=== PATIENT | female | born 1995 | race Hispanic/Latino ===

== ENCOUNTER 2023-08-08 14:00 | Day surgery (SDC) | payer OTHER ==
[2023-08-08 14:26] VITALS: BMI 24.5
[2023-08-08] MEDS ORDERED: hydrALAZINE 20 MG/ML VIAL SLOW IVP PRN (15:02)
== END 2023-08-08 15:10 | disposition home or self-care (01) ==
LOC: CSHLD/OP 14:00 → CSHLD 14:00 → UNDOADMIN 14:00 → UNDODISIN 15:10 → CSHLD/OP 15:10 → EDSTATUS 08-09 11:17
PROVIDERS: ATTEND Obstetrics & Gynecology
DX: O46.92 Antepartum hemorrhage, unspecified, second trimester (principal); Z98.890 Other specified postprocedural states; Z79.899 Other long term (current) drug therapy; Z3A.27 27 weeks gestation of pregnancy
CPT/HCPCS: 36415; 76815; 81001; 84702; 85025; 86900; 86901; 87086; 99282

== ENCOUNTER 2023-10-29 11:51 | Day surgery (SDC) | payer OTHER ==
[2023-10-29 12:37] VITALS: BMI 31.2
== END 2023-10-29 13:10 | disposition home or self-care (01) ==
LOC: CSHLD/OP 11:51
PROVIDERS: ATTEND Family Medicine
DX: O47.1 False labor at or after 37 completed weeks of gestation (principal); Z79.899 Other long term (current) drug therapy; Z3A.39 39 weeks gestation of pregnancy
CPT/HCPCS: 99282

== ENCOUNTER 2023-11-03 | Inpatient (IN) | payer OTHER | END 2023-11-07 12:35 | disposition home or self-care (01) | DRG 787 | PROVIDERS: ADMIT Family Medicine | PROC: 3E0P7VZ Introduction of Hormone into Female Reproductive, Via Natural or Artificial Opening (ICD-10-PCS; 2023-11-04) | PROC: 3E033XZ Introduction of Vasopressor into Peripheral Vein, Percutaneous Approach (ICD-10-PCS; 2023-11-04) | PROC: 10D00Z1 Extraction of Products of Conception, Low, Open Approach (ICD-10-PCS; principal; 2023-11-05) | PROC: 0W3R7ZZ Control Bleeding in Genitourinary Tract, Via Natural or Artificial Opening (ICD-10-PCS; 2023-11-05) | PROC: 30233N1 Transfusion of Nonautologous Red Blood Cells into Peripheral Vein, Percutaneous Approach (ICD-10-PCS; 2023-11-05) | DX: O14.94 Unspecified pre-eclampsia, complicating childbirth (principal); D62 Acute posthemorrhagic anemia; Z3A.40 40 weeks gestation of pregnancy; Z37.0 Single live birth; O48.0 Post-term pregnancy; O62.1 Secondary uterine inertia; O72.1 Other immediate postpartum hemorrhage; O64.0XX0 Obstructed labor due to incomplete rotation of fetal head, not applicable or unspecified ==